=== PATIENT | female | born 1975 | race Caucasian/White ===

== ENCOUNTER 2017-09-28 00:33 | Emergency (ER) | payer BC, MEDICAID ==
[2017-09-28 00:49] VITALS: RESP 16; O2SAT 98
[2017-09-28] MEDS ORDERED: DiphenhydrAMINE 50 mg/ml Inj ONE (01:07)
[2017-09-28] MEDS ORDERED: DiphenhydrAMINE 50 mg/ml Inj IVP STA (01:15)
--- NOTE | 2017-09-28 01:21 | C.PDOC ---
History Of Present Illness 41 year old female with no significant PMHx presents to the ED c/o sudden onset itching to her face and upper chest that occurred while laying down in bed. Patient reports she had an unknown soup. Patient admits to feeling nausea and dry heaves after rash occurred. Patient denies previous food allergies, recent allergen exposure, SOB, weakness, numbness. Chief Complaint (Nursing): Allergic Reaction History Per: Patient History/Exam Limitations: no limitations Onset/Duration Of Symptoms: Days Current Symptoms Are (Timing): Still Present Context: Food Possible Cause: Food Associated Symptoms: Skin Rash Home/EMS Treatment: None Recent travel outside of the [place]: No Additional History Per: Patient Past Medical History Reviewed: Historical Data, Nursing Documentation, Vital Signs Vital Signs: Last Vital Signs Temp 97.9 F 09/28/17 03:49 Pulse 69 09/28/17 03:49 Resp 16 09/28/17 03:49 BP 141/86 09/28/17 03:49 Pulse Ox 98 09/28/17 03:49 - Medical History PMH: No Chronic Diseases Surgical History: Cholecystectomy Family History: States: Unknown Family Hx - Social History Hx Alcohol Use: No Hx Substance Use: No - Immunization History Hx Tetanus Toxoid Vaccination: No Hx Influenza Vaccination: No Hx Pneumococcal Vaccination: No Review Of Systems Constitutional: Negative for: Fever, Chills Respiratory: Negative for: Cough, Shortness of Breath Gastrointestinal: Negative for: Vomiting, Abdominal Pain Skin: Positive for: Rash Neurological: Negative for: Weakness, Numbness Physical Exam - Physical Exam Appears: Non-toxic, No Acute Distress Skin: Normal Color, Warm, Dry, Rash (erythematous rasied to upper chest right side, right upper arm ) Head: Atraumatic, Normacephalic Eye(s): bilateral: Normal Inspection Nose: No Discharge Oral Mucosa: Moist Tongue: No Swelling Lips: No Swelling Neck: Normal ROM, Supple Chest: Symmetrical Cardiovascular: Rhythm Regular, No Murmur Respiratory: Normal Breath Sounds, No Rales, No Rhonchi, No Wheezing Gastrointestinal/Abdominal: Soft, No Tenderness, No Guarding, No Rebound Extremity: Normal ROM, No Tenderness, No Swelling Neurological/Psych: Oriented x3, Normal Speech Gait: Steady ED Course And Treatment - Laboratory Results Result Diagrams: 09/28/17 01:29 09/28/17 01:29 O2 Sat by Pulse Oximetry: 98 (ON RA) Pulse Ox Interpretation: Normal Medical Decision Making Medical Decision Making: Impression: allergic reaction Plan: * Benadryl 25 mg IVP * Compazine 5 mg IVP * Protonix 40 mg IVP * Solumerol 125 mg IVP * UA Reevaluation : rash improved, no longer feel itchy only sleepy due to medication will be D/C with medications Disposition - Disposition Referrals: [facility] at [facility] [Outside] Disposition: HOME/ ROUTINE Disposition Time: 04:20 Condition: GOOD Prescriptions: DiphenhydrAMINE [Benadryl] 25 mg PO TID PRN #12 cap PRN Reason: Itching / Pruritus Famotidine [Pepcid] 40 mg PO DAILY #5 tablet predniSONE [predniSONE Tab] 20 mg PO DAILY #5 tab Instructions: Hives, Allergy Testing Forms: [employer] ([place]) Print Language: ANGOLAN - Clinical Impression Clinical Impression: Allergic urticaria - Scribe Statement The provider has reviewed the documentation as recorded by the Scribe Truman Torres All medical record entries made by the Corbyibe were at my direction and personally dictated by me. I have reviewed the chart and agree that the record accurately reflects my personal performance of the history, physical exam, medical decision making, and the department course for this patient. I have also personally directed, reviewed, and agree with the discharge instructions and disposition.
[2017-09-28 01:33] LABS: BASO % 0.2 % (0.0-2.0); EOS # 0.1 K/uL (0.0-0.7); EOS % 0.8 % (0.0-4.0); HEMOGLOBIN 13.3 g/dL (11.0-16.0); LYMPH # 3.8 K/uL (1.0-4.3); LYMPH % 37.1 % (20.0-40.0); MEAN CELL VOLUME 82.3 fL (81.0-99.0); MEAN CORPUSCULAR HEMOGLOBIN 28.2 pg (27.0-31.0); MEAN CORPUSCULAR HGB CONC 34.2 g/dL (33.0-37.0); MEAN PLATELET VOLUME 8.7 fL (7.2-11.7); MONO # 0.5 K/uL (0.0-0.8); MONO % 5.4 % (0.0-10.0); NEUT # 5.8 K/uL (1.8-7.0); NEUT % 56.5 % (50.0-75.0); RBC 4.73 Mil/uL (3.80-5.20); RED CELL DISTRIBUTION WIDTH 13.6 % (11.5-14.5); WHITE BLOOD COUNT 10.2 K/uL (4.8-10.8)
[2017-09-28 01:46] LABS: ALB/GLOB RATIO 1.2 (1.0-2.1); ALBUMIN 3.9 g/dL (3.5-5.0); ALT/SGPT 30 U/L (9-52); AST/SGOT 17 U/L (14-36); BLOOD UREA NITROGEN 14 mg/dL (7-17); CALCIUM 9.3 mg/dl (8.6-10.4); GFR AFRICAN-AMERICAN > 60; GFR NON-AFRICAN AMERICAN > 60
[2017-09-28 03:50] VITALS: BP 141/86; PULSE 69; TEMP 97.9
== END 2017-09-28 03:50 | disposition home or self-care (01) ==
LOC: C.ER 00:33
DX: L50.0 Allergic urticaria (principal)
CPT/HCPCS: 80053; 85025; 96374; 96375; 99284; C9113; J0780; J1200; J2930